=== PATIENT | male | born 1955 | race Hispanic/Latino ===

== ENCOUNTER 2019-04-26 18:23 | Inpatient (IN) | payer BC ==
[2019-04-26 18:47] LABS: #Lymphocytes 1.3 thou/uL (1.20-3.40); #Monocytes 0.7 thou/uL (0.11-0.59); #Neutrophils 9.5 thou/uL (1.40-6.50); %Basophils 0.1 % (0.0-1.0); %Eosinophils 0.2 % (0.0-10.0); %Lymphocytes 11.4 % (21.0-51.0); %Monocytes 6.4 % (0.0-10.0); %Neutrophils 81.9 % (42.0-75.0); Hemoglobin 13.2 g/dL (14.0-18.0); Mean Corpuscular HGB CONC 35.3 g/dL (32.0-36.0); Mean Corpuscular Hemoglobin 32.1 pg (27.0-31.0); Mean Corpuscular Volume 91.1 fL (78.0-98.0); Mean Platelet Volume 7.9 fL (7.4-10.4); Platelet Count 265 thou/uL (130-400); Red Blood Cell (RBC) Count 4.11 mill/uL (4.70-6.10); White Blood Cell (WBC) Count 11.6 thou/uL (4.8-10.8)
[2019-04-26 19:11] LABS: ALT (SGPT) 16 U/L (8-55); AST (SGOT) 12 U/L (5-34); Albumin 4.5 g/dL (3.4-4.8); Alkaline Phosphatase 81 U/L (40-150); Anion Gap 15 mmol/L (10-20); BUN (Urea Nitrogen) 15 mg/dL (8.4-25.7); Bilirubin, Total 1.9 mg/dL (0.2-1.2); Calc. Creatinine Clearance 0 mL/min (70-130); Calcium 9.8 mg/dL (7.8-10.44); Carbon Dioxide 20 mmol/L (23-31); Chloride 99 mmol/L (98-107); Estimated GFR-MDRD Greater than 90; Globulin 3.2 g/dL (2.4-3.5); Glucose 128 mg/dL (80-115); Lipase 15 U/L (8-78); Potassium 3.8 mmol/L (3.5-5.1); Protein, Total 7.7 g/dL (5.8-8.1); Sodium 130 mmol/L (136-145)
[2019-04-26] MEDS ORDERED: Ondansetron PF 4 MG/2 ML Vial ONE (19:14)
[2019-04-26] MEDS ORDERED: Morphine 4 MG/ML VIAL ONE ×2 (19:14→20:52)
[2019-04-26 19:35] LABS: Bilirubin Negative (Negative); Blood, Urine Negative (Negative); Clarity CLEAR (Clear); Glucose, Urine (Dipstick) Negative (Negative); Leukocyte Negative (Negative); Nitrite Negative (Negative); Protein, Urine (Dipstick) Negative (Neg-Trace); Specific Gravity, Urine 1.006 (1.002-1.036)
--- NOTE | 2019-04-26 20:21 | ULT ---
US Gallbladder RUQ: 04/26/2019 7:02 PM CLINICAL HISTORY: Right upper quadrant abdominal pain. STUDY: Limited right upper quadrant ultrasound of abdomen. COMPARISON: None. FINDINGS: Liver: Size: Normal. Echogenicity: Hyperechoic consistent with hepatic steatosis. Contour: Smooth. Mass: None. Bile ducts: No intrahepatic or extrahepatic biliary dilatation. Common bile duct measures 5 mm. Gallbladder: Cholelithiasis. A small amount of pericholecystic fluid and gallbladder wall thickening. Pancreas: Head and body appear normal; tail obscured by bowel gas. Right kidney: No pelvicalyceal dilatation. Right kidney measuring 9.3 cm in length. IMPRESSION: 1. Cholelithiasis with signs suggesting acute cholecystitis. 2. Fatty liver
[2019-04-26] MEDS ORDERED: cefOXitin 2 GM VIAL ONE (20:52)
[2019-04-26 22:11] VITALS: BMI 25.8
[2019-04-26] MEDS ORDERED: HumaLOG 300 UNITS/3 ML VIAL SC PRN (22:13)
[2019-04-26] MEDS ORDERED: Dextrose 50% Abboject 50 ML SYRINGE IVP PRN (22:13)
[2019-04-26] MEDS ORDERED: Dextrose 5% in Water 1,000 ML IV PRN (22:13)
[2019-04-26] MEDS ORDERED: Acetaminophen 500 MG TAB PO PRN (22:20)
[2019-04-26] MEDS ORDERED: Morphine 2 MG/ML SYRINGE SLOW IVP PRN (22:21)
[2019-04-26] MEDS ORDERED: Acetaminophen 1,000 MG in Premix Bag 1 BAG IVPB PRN (22:44)
[2019-04-26] MEDS: Sodium Chloride 0.9% 1,000 ML IV SCH (23:10)
[2019-04-27] MEDS ORDERED: cefOXitin Sodium/Dextrose,Iso 2 GM in Premix Bag 1 BAG IVPB SCH (06:00)
[2019-04-27] MEDS: Sodium Chloride 0.9% 1,000 ML IV SCH (08:44)
[2019-04-27] MEDS ORDERED: Acetaminophen 1,000 MG in Premix Bag 1 BAG IVPB PRN (09:07)
[2019-04-27] MEDS ORDERED: Ondansetron PF 4 MG/2 ML Vial IVP PRN (09:08)
[2019-04-27] MEDS ORDERED: Morphine 4 MG/ML VIAL SLOW IVP PRN (09:08)
[2019-04-27] MEDS ORDERED: Morphine 2 MG/ML SYRINGE SLOW IVP PRN (09:10)
--- NOTE | 2019-04-27 10:37 | HP ---
CHIEF COMPLAINT: Upper abdominal pain. HISTORY OF PRESENT ILLNESS: This is a 63-year-old male, who has right upper quadrant pain, described as sharp, 8/10, associated with nausea and vomiting. Never had this pain before. Denies previous known history of gallstones, jaundice, or pancreatitis. Seen in emergency department, where ultrasound shows gallstones, common bile duct is 5 mm. He has elevation of his bilirubin only without elevation of his other liver function tests. His lipase is normal. PAST MEDICAL HISTORY: Includes diabetes mellitus, hypertension, and dyslipidemia. PAST SURGICAL HISTORY: Denies. MEDICATIONS: Medicines taken daily; 1. Multivitamin. 2. Lopid. 3. Aspirin. 4. Metformin. 5. Lisinopril. 6. Glimepiride. ALLERGIES: NO KNOWN DRUG ALLERGIES. SOCIAL HISTORY: No smoking, alcohol, or other drugs. REVIEW OF SYSTEMS: 10-system review of systems is otherwise negative except as described above. PHYSICAL EXAMINATION: VITAL SIGNS: Blood pressure 135/80, pulse 90, respirations 20, he is afebrile. HEENT: Sclerae anicteric. Oropharynx is clear. NECK: No lymphadenopathy. CHEST: Clear. HEART: Regular rate and rhythm. ABDOMEN: Soft. Tender right upper quadrant with localized guarding. No rebound. No abdominal or inguinal hernias. EXTREMITIES: No ischemia or edema to extremities. LABORATORY DATA: White count is 11, hemoglobin is 13, platelet count is 265. Sodium is 130, potassium 3.8, creatinine 0.84, glucose 128, bilirubin 1.9. AST, ALT, and alkaline phosphatase all normal. Ultrasound shows cholelithiasis with signs suggestive of acute cholecystitis, common bile duct 5 mm. ASSESSMENT: 1. Acute cholecystitis. 2. Diabetes mellitus type 2. 3. Hypertension. 4. Dyslipidemia. PLAN: Laparoscopic cholecystectomy with intraoperative cholangiogram. Risks, benefits, and alternatives were discussed, he gives consent, we will do this today. Job ID: [id number]
[2019-04-27 12:29] VITALS: BP 109/66; TEMP 99.5
[2019-04-27] MEDS ORDERED: Bupivacaine/Epinephrine 0.25% 30 ML VIAL ONE (13:16)
[2019-04-27] MEDS ORDERED: Iothalamate Meglumine 60% 50 ML VIAL FS ONE (13:16)
[2019-04-27] MEDS ORDERED: Sodium Chloride 0.9% 100 ML ONE (13:17)
[2019-04-27] MEDS ORDERED: cefOXitin 2 GM VIAL ONE (13:17)
[2019-04-27] MEDS ORDERED: Fentanyl 100 MCG/2 ML VIAL ONE (13:21)
[2019-04-27] MEDS ORDERED: Lidocaine 1% PF 5 ML VIAL ONE (14:29)
[2019-04-27] MEDS ORDERED: Rocuronium Bromide 10 MG/ML (10ML VIAL) ONE (14:29)
[2019-04-27] MEDS ORDERED: Succinylcholine Chloride 20 MG/ML 10 ml SYRINGE FS ONE (14:29)
[2019-04-27] MEDS ORDERED: Ketorolac Tromethamine 30 MG/ML VIAL ONE (14:29)
[2019-04-27] MEDS ORDERED: PROPOFOL 200 MG/20 ML VIAL ONE (14:29)
[2019-04-27] MEDS ORDERED: Glycopyrrolate 0.2 MG/ML 5 ML SYRINGE ONE (14:29)
[2019-04-27] MEDS ORDERED: Ondansetron PF 4 MG/2 ML Vial ONE (14:29)
[2019-04-27] MEDS ORDERED: Dexamethasone 20 MG/5 ML VIAL ONE (14:29)
--- NOTE | 2019-04-27 14:44 | RAD ---
INTRAOPERATIVE FLUOROSCOPIC CHOLANGIOGRAM: CLINICAL HISTORY: Lateral fluoroscopic cholecystectomy. FINDINGS: Intraoperative cholangiogram imaging reveals contrast opacification within the extrahepatic and porti ons of the intrahepatic biliary ductal system without an obvious, focal filling defect. Contrast is seen within regional bowel. IMPRESSION: Fluoroscopic imaging of laparoscopic cholecystectomy and cholangiogram does not reveal a focal fillin g defect of the opacified biliary system. Transcribed Date/Time: 04/27/2019 2:53 PM
[2019-04-27] MEDS ORDERED: HYDROmorphone 2 MG/ML VIAL SLOW IVP PRN (15:15)
[2019-04-27] MEDS ORDERED: Ondansetron HCl/PF 4 MG/2 ML Vial IVP PRN ×2 (15:15→15:16)
[2019-04-27] MEDS ORDERED: Promethazine HCl 25 MG/ML VIAL IM PRN ×2 (15:15→15:16)
[2019-04-27] MEDS ORDERED: Promethazine HCl 25 MG/ML VIAL SLOW IVP PRN ×2 (15:15→15:16)
[2019-04-27] MEDS ORDERED: PACU-Morphine 4MG/ML VIAL SLOW IVP PRN (15:15)
[2019-04-27] MEDS ORDERED: Dextrose 50% Abboject 50 ML SYRINGE SLOW IVP PRN (15:18)
[2019-04-27] MEDS ORDERED: HumaLOG 300 UNITS/3 ML VIAL SC PRN (15:18)
[2019-04-27] MEDS ORDERED: HYDROcodone/Acetaminophen 7.5/325 mg Tablet PO PRN (15:18)
[2019-04-27] MEDS ORDERED: Dextrose 5% in Water 1,000 ML IV PRN (15:18)
--- NOTE | 2019-04-27 16:42 | OP ---
DATE OF PROCEDURE: 04/27/2019 PREOPERATIVE DIAGNOSIS: Acute cholecystitis with elevated liver test. POSTOPERATIVE DIAGNOSIS: Acute cholecystitis with elevated liver test. PROCEDURE PERFORMED: Laparoscopic cholecystectomy, intraoperative cholangiogram. ANESTHESIA: General. ESTIMATED BLOOD LOSS: Minimal. COMPLICATIONS: None. SPECIMEN: Gallbladder. FINDINGS: Normal cholangiogram. DESCRIPTION OF PROCEDURE: The patient was taken to the operating room and laid supine on the operating room table. After general anesthetic was obtained, the abdomen was shaved, prepped, and draped in a sterile fashion. A curved incision was made below the umbilicus. Cautery was dissected down to and score the fascia. The abdominal cavity was entered bluntly using a Melodie clamp. Holding stitch of PDS was placed on each side of the fascia. Keegan trocar was placed. High-flow pneumoperitoneum was obtained. Upper midline 5-mm port and two right upper quadrant 5-mm port were placed under direct visualization. There was significant acute inflammatory cholecystitis. Needle was used to decompress the gallbladder, still it could be grasped. It was placed up over the liver. The omentum was bluntly dissected off the anterior aspect of it and the area of the cystic duct, the cystic artery and cystic duct were dissected free from surrounding structures. The critical view triangle was seen. A clip was placed on the cystic duct and a small ductotomy was made just proximal to that. A cholangiocatheter was brought in through a separate stab incision and placed in the cystic duct and cholangiogram was performed, which shows good contrast flow into the duodenum, right and left hepatic duct system without obstruction. Cholangiocatheter was removed and 2 clips were placed proximally on the cystic duct. It was cut using laparoscopic scissors. Cystic artery was taken using one clip proximally and one clip distally and it was cut using laparoscopic scissors. Cautery was then used to dissect the gallbladder out of the gallbladder fossa. The gallbladder was placed in an Endo Catch bag and brought out through the Keegan. Meticulous hemostasis was obtained in the liver bed. Because of the inflammatory, Deborah was put into the liver bed as well. There was no ongoing bleeding. All port sites were infiltrated using local anesthetic. All ports were removed under camera visualization. Pneumoperitoneum was let down. PDS was used to close the fascial defect below the umbilicus. All incisions were irrigated and closed using 4-0 Monocryl and Dermabond. All port sites were closed using 4-0 Monocryl and Dermabond. The patient was sent to recovery room in stable condition. All instrument counts, needle counts, and lap counts were correct. Job ID: [id number]
== END 2019-04-27 18:32 | disposition home or self-care (01) | DRG 419 ==
LOC: ERS 18:23 → SURG A 21:56 → OBSVTOIN 21:56
PROVIDERS: ADMIT Surgery; ATTEND Surgery
PROC: 0FT44ZZ Resection of Gallbladder, Percutaneous Endoscopic Approach (ICD-10-PCS; principal; 2019-04-27)
PROC: BF13YZZ Fluoroscopy of Gallbladder and Bile Ducts using Other Contrast (ICD-10-PCS; 2019-04-27)
DX: K81.0 Acute cholecystitis (principal); E11.9 Type 2 diabetes mellitus without complications; I10 Essential (primary) hypertension; E78.5 Hyperlipidemia, unspecified
CPT/HCPCS: 36415; 36416; 76000; 76705; 80053; 81003; 83690; 84484; 85025; 88304; 93005; 96365; 96375; 96376; J0131; J0694; J1100; J1610; J1885; J2001; J2270; J2405; J2704; J3010; J3490; Q9961

== ENCOUNTER 2021-10-23 09:12 | Emergency (ER) | payer BC, OTHER | END 2021-10-23 09:59 | disposition home or self-care (01) | LOC: ERS 09:12 | DX: S63.502A Unspecified sprain of left wrist, initial encounter (principal); E11.9 Type 2 diabetes mellitus without complications; E78.5 Hyperlipidemia, unspecified; I10 Essential (primary) hypertension; Z79.899 Other long term (current) drug therapy; Z79.84 Long term (current) use of oral hypoglycemic drugs; Z79.82 Long term (current) use of aspirin; X50.9XXA Other and unspecified overexertion or strenuous movements or postures, initial encounter ==